=== PATIENT | female | born 1965 | race American Indian/Alaskan Native ===

== ENCOUNTER 2018-11-23 10:45 | Emergency (ER) | payer OTHER, SELFPAY ==
--- NOTE | 2018-11-23 11:20 | Emergency Department Report ---
ED Shortness of Breath HPI - General Chief Complaint: Dyspnea/Respdistress Stated Complaint: HYPERTENSION/SOB Time Seen by Provider: 11/23/18 11:15 Source: patient Mode of arrival: Stretcher Limitations: No Limitations - History of Present Illness Initial Comments: 53-year-old female with history of hypertension, diabetes, CHF presents to ED with shortness of breath. Patient reports she has had a productive cough for approximately one week. Patient went for one of her daily walks in her neighborhood this morning when she began to have a coughing spell. Patient states afterwards she felt dizzy, lightheaded, short of breath. Reports chest pain from coughing. PCP: [facility] Complaint: shortness of breath, cough -: This morning Severity: moderate Consistency: now resolved Worsens With: coughing Known History Of: congestive heart failure Context: recent URI Associated Symptoms: chest pain (with cough), cough, sputum production - Related Data Home Oxygen Therapy: No Home Medications Medication Instructions Recorded Confirmed Last Taken Atorvastatin Calcium [Lipitor] 80 mg PO DAILY 04/16/18 11/23/18 11/23/18 Carvedilol [Coreg] 25 mg PO BIDWM 04/16/18 11/23/18 11/23/18 Furosemide [Lasix TAB] 20 mg PO BID 04/16/18 11/23/18 11/23/18 Gabapentin [Neurontin] 100 mg PO Q8HR 04/16/18 11/23/18 11/22/18 Nitrofurantoin Thayer/M-Cryst 100 mg PO Q12HR 04/16/18 11/23/18 04/16/18 [Macrobid CAP] Omeprazole 20 mg PO QAM 04/16/18 11/23/18 11/22/18 Aspirin EC 81 mg PO QDAY 11/23/18 11/23/18 11/23/18 ISOSORBIDE MONOnitrate [Imdur ER] 60 mg PO QAM 11/23/18 11/23/18 11/23/18 Insulin Glargine,Hum.rec.anlog 25 unit SQ QDAY 11/23/18 11/23/18 11/22/18 [Lantus Solostar] Insulin Lispro [Humalog 100 10 units SQ TIDAC 11/23/18 11/23/18 11/23/18 UNITS/ML Kwikpen] Metformin HCl [metFORMIN] 1,000 mg PO QDAY 11/23/18 11/23/18 11/22/18 Previous Rx's Medication Instructions Recorded Last Taken Type Losartan Potassium 25 mg PO DAILY #120 tablet 04/20/18 11/23/18 Rx hydrALAZINE [Apresoline TAB] 100 mg PO TID #90 tab 04/20/18 11/22/18 Rx Albuterol Sulfate [Proventil Hfa] 2 puff IH Q4HR PRN #1 hfa.aer.ad 11/23/18 Unknown Rx Benzonatate [Tessalon Perles] 100 mg PO Q8HR PRN #20 capsule 11/23/18 Unknown Rx Allergies Allergy/AdvReac Type Severity Reaction Status Date / Time Penicillins Allergy Hives Verified 04/16/18 22:47 ED Review of Systems ROS: Stated complaint: HYPERTENSION/SOB Other details as noted in HPI Comment: All other systems reviewed and negative Constitutional: denies: chills, fever Respiratory: cough, shortness of breath Cardiovascular: chest pain (with cough) Gastrointestinal: denies: nausea, vomiting Neurological: other (reports dizziness). denies: headache ED Past Medical Hx - Past Medical History Previous Medical History?: Yes Hx Hypertension: Yes Hx Congestive Heart Failure: Yes Hx Diabetes: Yes - Surgical History Past Surgical History?: Yes - Social History Smoking Status: Never Smoker Substance Use Type: None - Medications Home Medications: Home Medications Medication Instructions Recorded Confirmed Last Taken Type Atorvastatin Calcium [Lipitor] 80 mg PO DAILY 04/16/18 11/23/18 11/23/18 History Carvedilol [Coreg] 25 mg PO BIDWM 04/16/18 11/23/18 11/23/18 History Furosemide [Lasix TAB] 20 mg PO BID 04/16/18 11/23/18 11/23/18 History Gabapentin [Neurontin] 100 mg PO Q8HR 04/16/18 11/23/18 11/22/18 History Nitrofurantoin Thayer/M-Cryst 100 mg PO Q12HR 04/16/18 11/23/18 04/16/18 History [Macrobid CAP] Omeprazole 20 mg PO QAM 04/16/18 11/23/18 11/22/18 History Losartan Potassium 25 mg PO DAILY #120 tablet 04/20/18 11/23/1819 Rx hydrALAZINE [Apresoline TAB] 100 mg PO TID #90 tab 04/20/18 11/23/18 11/22/18 Rx Albuterol Sulfate [Proventil Hfa] 2 puff IH Q4HR PRN #1 hfa.aer.ad 11/23/18 Unknown Rx Aspirin EC 81 mg PO QDAY 11/23/18 11/23/18 11/23/18 History Benzonatate [Tessalon Perles] 100 mg PO Q8HR PRN #20 capsule 11/23/18 Unknown Rx ISOSORBIDE MONOnitrate [Imdur ER] 60 mg PO QAM 11/23/18 11/23/18 11/23/18 History Insulin Glargine,Hum.rec.anlog 25 unit SQ QDAY 11/23/18 11/23/18 11/22/18 History [Lantus Solostar] Insulin Lispro [Humalog 100 10 units SQ TIDAC 11/23/18 11/23/18 11/23/18 History UNITS/ML Kwikpen] Metformin HCl [metFORMIN] 1,000 mg PO QDAY 11/23/18 11/23/18 11/22/18 History ED Physical Exam - General Limitations: No Limitations General appearance: alert, in no apparent distress - Head Head exam: Present: atraumatic, normocephalic - Eye Eye exam: Present: normal appearance, PERRL, EOMI - ENT ENT exam: Present: mucous membranes moist - Neck Neck exam: Present: normal inspection - Respiratory Respiratory exam: Present: normal lung sounds bilaterally. Absent: respiratory distress, wheezes - Cardiovascular Cardiovascular Exam: Present: regular rate, normal rhythm - GI/Abdominal GI/Abdominal exam: Present: soft. Absent: distended, tenderness - Extremities Exam Extremities exam: Present: normal inspection. Absent: pedal edema, calf tenderness - Neurological Exam Neurological exam: Present: alert, oriented X3 - Psychiatric Psychiatric exam: Present: normal affect, normal mood - Skin Skin exam: Present: warm, dry, intact, normal color ED Course Vital Signs 11/23/18 11/23/18 11/23/18 10:54 10:57 11:00 Temperature 98.8 F Pulse Rate 85 88 Respiratory 16 28 H Rate Blood Pressure 162/87 162/87 157/92 O2 Sat by Pulse 95 Oximetry 11/23/18 11/23/18 11/23/18 11:15 11:30 11:46 Temperature Pulse Rate 87 85 88 Respiratory 27 H 20 25 H Rate Blood Pressure 168/102 154/94 167/96 O2 Sat by Pulse 100 94 Oximetry 11/23/18 11/23/18 11/23/18 12:00 12:15 12:30 Temperature Pulse Rate 95 H 94 H 87 Respiratory 16 12 24 Rate Blood Pressure 167/105 171/124 187/100 O2 Sat by Pulse 95 95 97 Oximetry 11/23/18 11/23/18 11/23/18 12:45 13:00 13:15 Temperature Pulse Rate 101 H 92 H 93 H Respiratory 13 24 29 H Rate Blood Pressure 194/95 167/84 171/88 O2 Sat by Pulse 96 96 95 Oximetry 11/23/18 13:30 Temperature Pulse Rate 91 H Respiratory 26 H Rate Blood Pressure 171/87 O2 Sat by Pulse Oximetry ED Medical Decision Making - Lab Data Result diagrams: 11/23/18 11:22 11/23/18 11:22 - EKG Data -: EKG Interpreted by Mo EKG shows normal: sinus rhythm, intervals, QRS complexes, ST-T waves Rate: normal - EKG Data Interpretation: no acute changes, LVH, other (flattened T waves lateral leads biatrial enlargement; PACs present) - Radiology Data Radiology results: report reviewed, image reviewed - Medical Decision Making - coughing spell triggering SOB and dizziness - pt hypertensive and hyperglycemic; no neuro deficits; not in DKA - hydralazine and insulin given; BP and glucose improved - labs unremarkable, CXR shows no infiltrates, BNP normal - O2 sats normal, pt in no resp distress - EKG shows no ST changes, trop negative - outpt f/u advised - rx given for tessalon and albuterol MDI - return precautions given - Differential Diagnosis CHF, pneumonia, ACS Critical care attestation.: If time is entered above; I have spent that time in minutes in the direct care of this critically ill patient, excluding procedure time. ED Disposition Clinical Impression: Hypertensive urgency, Hyperglycemia, URI (upper respiratory infection) Disposition: DC-01 TO HOME OR SELFCARE Is pt being admited?: No Condition: Stable Instructions: Upper Respiratory Infection (ED), Hypertension (ED), Diabetic Hyperglycemia (ED) Prescriptions: Albuterol Sulfate [Proventil Hfa] 2 puff IH Q4HR PRN #1 hfa.aer.ad PRN Reason: Wheezing Benzonatate [Tessalon Perles] 100 mg PO Q8HR PRN #20 capsule PRN Reason: Cough Referrals: REED NICHOLSON MD [Primary Care Provider] - 3-5 Days PRIMARY CARE, [Referring] - 3-5 Days Time of Disposition: 13:26
[2018-11-23 11:33] LABS: Basophils # (Auto) 0.1 K/mm3 (0.0-0.1); Basophils % (Auto) 1.2 % (0.0-1.8); Eosinophils # (Auto) 0.1 K/mm3 (0.0-0.4); Hematocrit 45.4 % (30.3-42.9); Hemoglobin 15.3 gm/dl (10.1-14.3); Lymphocytes # (Auto) 2.9 K/mm3 (1.2-5.4); Lymphocytes % (Auto) 46.6 % (13.4-35.0); Mean Corpuscular HGB Conc 34 % (30-34); Mean Corpuscular Volume 75 fl (79-97); Monocytes # (Auto) 0.5 K/mm3 (0.0-0.8); Monocytes % (Auto) 7.8 % (0.0-7.3); Platelet Count 293 K/mm3 (140-440); Red Blood Count 6.08 M/mm3 (3.65-5.03); Red Cell Distribution Width 14.1 % (13.2-15.2)
--- NOTE | 2018-11-23 11:45 | XRay Report ---
CHEST 1 VIEW 11/23/2018 11:03 AM INDICATION / CLINICAL INFORMATION: Dyspnea. COMPARISON: None available. FINDINGS: SUPPORT DEVICES: None. HEART / MEDIASTINUM: Normal cardiac size and mediastinal contours with central vascular congestion. LUNGS / PLEURA: Bibasilar opacities likely represent atelectasis/evolving edema. No significant pleur al effusion. No pneumothorax. ADDITIONAL FINDINGS: No significant additional findings. IMPRESSION: Central vascular congestion with probable atelectasis/evolving edema. Signer Name: Howard Yung MD Signed: 11/23/2018 11:41 AM Workstation Name: [id number]
[2018-11-23 11:55] LABS: BUN/Creatinine Ratio 16; Blood Urea Nitrogen 18 mg/dL (7-17); Calcium 9.3 mg/dL (8.4-10.2); Hemolysis Index 6
[2018-11-23] MEDS ORDERED: APRESOLINE IV ONE (12:07)
[2018-11-23] MEDS ORDERED: HumuLIN R IV ONE (12:07)
[2018-11-23 13:35] VITALS: BP 171/87
== END 2018-11-23 13:42 | disposition home or self-care (01) ==
LOC: ED 10:45
DX: I16.0 Hypertensive urgency (principal); J06.9 Acute upper respiratory infection, unspecified; E11.65 Type 2 diabetes mellitus with hyperglycemia; I11.0 Hypertensive heart disease with heart failure; I50.9 Heart failure, unspecified; Z88.0 Allergy status to penicillin; Z79.4 Long term (current) use of insulin; Z79.899 Other long term (current) drug therapy; Z79.82 Long term (current) use of aspirin
CPT/HCPCS: 36415; 71045; 80048; 82962; 83880; 84484; 85025; 93005; 93010; 96374; 96375; 99284; J0360; J1815